=== PATIENT | female | born 1995 | race Caucasian/White ===

== ENCOUNTER → 2023-06-02 | Emergency (ER) | payer BC ==
[~2023-06-02] VITALS: Ht 157.5 cm; Wt 108.9 kg
[2023-06-02 12:40] LABS: HEMATOCRIT 44.9 % (36.0-45.00); HEMOGLOBIN 15.2 g/dL (12.0-15.00); MEAN CELL VOLUME 89.7 fL (80.00-100.00); MEAN CORPUSCULAR HEMOGLOBIN 30.4 pg (27.00-32.0); MEAN CORPUSCULAR HGB CONC 33.9 g/dl (32.0-36.0); PLATELET COUNT 346 K/uL (150-450); RED BLOOD COUNT 5.01 M/uL (4.00-6.00); RED CELL DISTRIBUTION WIDTH 13.9 % (11.5-14.5)
[2023-06-02 13:13] LABS: ALBUMIN 3.6 gm/dL (3.4-5.0); BILIRUBIN TOTAL 0.49 mg/dL (0.3-1.2); CALCIUM 9.5 mg/dL (8.5-10.1); CREATININE SERUM 0.97 mg/dL (0.55-1.02); GFR 68.38; GLOBULINA 4.7 G/DL (2.4-3.5); POTASSIUM 3.79 mEq/L (3.5-5.1); TOTAL PROTEIN 8.3 gm/dL (6.4-8.2)
[2023-06-02 15:34] LABS: URINE APPEARANCE Clear; URINE BILIRRUBIN Negative (NEGATIVE); URINE BLOOD Trace; URINE COLOR Yellow; URINE GLUCOSE Negative (NEGATIVE); URINE LEUKOCYTE Negative; URINE NITRATE Negative; URINE PROTEIN 30 (NEGATIVE)
[2023-06-02 15:37] LABS: URINE BACTERIA 845.4 uL (0.0-1933); URINE EPITHELIAL CELLS 21.6 uL (0.0-38.8); URINE RBC 34.4 uL (0.0-20.8); URINE WBC 8.9 uL (0.0-23.2)
== END | disposition left against medical advice (07) ==
LOC: ER 10:54
PROVIDERS: General Practice
DX: K52.89 Other specified noninfective gastroenteritis and colitis (principal); K29.70 Gastritis, unspecified, without bleeding; F31.89 Other bipolar disorder; Z91.040 Latex allergy status; K64.8 Other hemorrhoids; Z20.822 Contact with and (suspected) exposure to COVID-19